=== PATIENT | female | born 1970 | race Two or more races ===

== ENCOUNTER 2019-04-24 03:11 | Emergency (ER) | payer OTHER ==
[~2019-04-24] VITALS: Ht 154.9 cm; Wt 77.7 kg
[2019-04-24 03:25] VITALS: Ht 154.9 cm; Wt 77.7 kg
[2019-04-24 05:01] VITALS: BP 128/78
== END 2019-04-24 04:57 | disposition home or self-care (01) ==
LOC: ED 03:11
DX: J11.1 Influenza due to unidentified influenza virus with other respiratory manifestations (principal); Z88.2 Allergy status to sulfonamides
CPT/HCPCS: Q0092